=== PATIENT | female | born 2000 | race Two or more races ===

== ENCOUNTER 2020-11-02 01:02 | Emergency (ER) | payer OTHER, SELFPAY ==
[2020-11-02] MEDS ORDERED: Bacitracin 1 PK ONE (01:29)
[2020-11-02] MEDS ORDERED: Boostrix 0.5 ML (Tdap) VIAL ONE (01:29)
[2020-11-02] MEDS ORDERED: Lidocaine 1% (PF) 30 ML VIAL ONE (01:32)
--- NOTE | 2020-11-02 09:25 | CT ---
PRELIMINARY REPORT/[facility]/EMERGENCY AFTER HOURS PROCEDURE: EXAM: CT Head, Facial bones, and Cervical Spine Without IV contrast. CLINICAL HISTORY: FELL FROM CURB, PUNCTURE WOUND TO TOP OF LIP, LAC TO EYE, ABRASION TO FOREHEAD. TECHNIQUE: Axial computed tomography images were acquired of the head, facial bones, and the cervical spine with out intravenous contrast. Sagittal and coronal reformatted images were obtained of the facial bones and cervical spine. COMPARISON: None provided. FINDINGS: BRAIN: No acute intraparenchymal hemorrhage. No mass lesion. No CT evidence for acute territorial infarct. N o midline shift or extra-axial collection. VENTRICLES No hydrocephalus. ORBITS The orbits are unremarkable. SINUSES AND MASTOIDS The paranasal sinuses and mastoid air cells are clear. SOFT TISSUES Right frontal scalp hematoma. Right periorbital hematoma with a laceration. No radiopaque foreign b carmel is seen. BONES No acute osseous pathology evident. No acute fracture is evident on images of the head, facial bones, or cervical spine. DISKS/DEGENERATIVE CHANGES No significant disc or facet degeneration. Posterior cervical spine vertebral body alignment is within normal limits. IMPRESSION: 1. No acute intracranial findings. No acute intracranial injury evident. 2. No acute facial bone fracture evident. Right frontal scalp hematoma. Right periorbital hematoma with a soft tissue laceration. 3. No cervical spine fracture evident. ELECTRONICALLY SIGNED BY: Marek Genao MD Nov 02, 2020 2:32:00 AM CIVIL ENGINEERING INTERN This report is intended for review by the ordering physician only, in accordance of law. If you recei ve this report in error, please call [facility] at [phone]. FINAL REPORT EMERGENT AFTER HOURS CT OF THE FACE WITHOUT CONTRAST: FINDINGS/IMPRESSION: I agree with the findings and impression given in the preliminary report per [facility] physici an. There is right facial/forehead soft tissue swelling without underlying facial fracture. POS: EAA
--- NOTE | 2020-11-02 09:26 | CT ---
PRELIMINARY REPORT/[facility]/EMERGENCY AFTER HOURS PROCEDURE: EXAM: CT Head, Facial bones, and Cervical Spine Without IV contrast. CLINICAL HISTORY: FELL FROM CURB, PUNCTURE WOUND TO TOP OF LIP, LAC TO EYE, ABRASION TO FOREHEAD. TECHNIQUE: Axial computed tomography images were acquired of the head, facial bones, and the cervical spine with out intravenous contrast. Sagittal and coronal reformatted images were obtained of the facial bones and cervical spine. COMPARISON: None provided. FINDINGS: BRAIN: No acute intraparenchymal hemorrhage. No mass lesion. No CT evidence for acute territorial infarct. N o midline shift or extra-axial collection. VENTRICLES No hydrocephalus. ORBITS The orbits are unremarkable. SINUSES AND MASTOIDS The paranasal sinuses and mastoid air cells are clear. SOFT TISSUES Right frontal scalp hematoma. Right periorbital hematoma with a laceration. No radiopaque foreign b carmel is seen. BONES No acute osseous pathology evident. No acute fracture is evident on images of the head, facial bones, or cervical spine. DISKS/DEGENERATIVE CHANGES No significant disc or facet degeneration. Posterior cervical spine vertebral body alignment is within normal limits. IMPRESSION: 1. No acute intracranial findings. No acute intracranial injury evident. 2. No acute facial bone fracture evident. Right frontal scalp hematoma. Right periorbital hematoma with a soft tissue laceration. 3. No cervical spine fracture evident. ELECTRONICALLY SIGNED BY: Marek Genao MD Nov 02, 2020 2:32:00 AM [employer] HARVESTING SUPERVISOR This report is intended for review by the ordering physician only, in accordance of law. If you recei ve this report in error, please call [facility] at [phone]. FINAL REPORT EMERGENT AFTER HOURS CT OF THE CERVICAL SPINE WITHOUT CONTRAST: FINDINGS/IMPRESSION: I agree with the findings and impression given in the preliminary report per [facility] physici an. No evidence of acute osseous abnormality of the cervical spine. POS: EAA
--- NOTE | 2020-11-02 09:27 | CT ---
PRELIMINARY REPORT/[facility]/EMERGENCY AFTER HOURS PROCEDURE: EXAM: CT Head, Facial bones, and Cervical Spine Without IV contrast. CLINICAL HISTORY: FELL FROM CURB, PUNCTURE WOUND TO TOP OF LIP, LAC TO EYE, ABRASION TO FOREHEAD. TECHNIQUE: Axial computed tomography images were acquired of the head, facial bones, and the cervical spine with out intravenous contrast. Sagittal and coronal reformatted images were obtained of the facial bones and cervical spine. COMPARISON: None provided. FINDINGS: BRAIN: No acute intraparenchymal hemorrhage. No mass lesion. No CT evidence for acute territorial infarct. N o midline shift or extra-axial collection. VENTRICLES No hydrocephalus. ORBITS The orbits are unremarkable. SINUSES AND MASTOIDS The paranasal sinuses and mastoid air cells are clear. SOFT TISSUES Right frontal scalp hematoma. Right periorbital hematoma with a laceration. No radiopaque foreign b carmel is seen. BONES No acute osseous pathology evident. No acute fracture is evident on images of the head, facial bones, or cervical spine. DISKS/DEGENERATIVE CHANGES No significant disc or facet degeneration. Posterior cervical spine vertebral body alignment is within normal limits. IMPRESSION: 1. No acute intracranial findings. No acute intracranial injury evident. 2. No acute facial bone fracture evident. Right frontal scalp hematoma. Right periorbital hematoma with a soft tissue laceration. 3. No cervical spine fracture evident. ELECTRONICALLY SIGNED BY: Marek Genao MD Nov 02, 2020 2:32:00 AM PRODUCT DEVELOPMENT TECHNICIAN This report is intended for review by the ordering physician only, in accordance of law. If you recei ve this report in error, please call [facility] at [phone]. FINAL REPORT EMERGENT AFTER HOURS CT OF THE BRAIN WITHOUT CONTRAST: FINDINGS/IMPRESSION: I agree with the findings and impression given in the preliminary report per [facility] physici an. 1. No evidence of acute intracranial abnormality. 2. Right forehead soft tissue swelling. POS: EAA
== END 2020-11-02 04:59 | disposition short-term general hospital (02) ==
LOC: ERS 01:02
DX: S01.511A Laceration without foreign body of lip, initial encounter (principal); S01.111A Laceration without foreign body of right eyelid and periocular area, initial encounter; F10.129 Alcohol abuse with intoxication, unspecified; W18.30XA Fall on same level, unspecified, initial encounter
CPT/HCPCS: 12011; 70450; 70486; 72125; 90471; 90715; J2001